=== PATIENT | male | born 1950 | race Caucasian/White ===

== ENCOUNTER → 2017-12-30 14:37 | Outpatient (CLI) | payer MEDICARE, OTHER, SELFPAY ==
--- NOTE | 2017-12-30 | PROSBIL_PTH ---
PATIENT: ISADORA FLORES LOC: [facility] U#:[id number] AGE/SX: 75/M ROOM: RE12/30/[address]: Dr. Dakota Jeffers MD : 1950 BED: DIS: SPEC #: [id number] RECD: 12/31/17 09:14 STATUS: RICARDA HERNÁN #: [id number] JOSE: 12/30/17 00:[address]: Dakota Jeffers DEPT: SURGICAL PATHOLOGY RECD BY: Bassam Kern ENTERED: 12/31/17 09:15 SP TYPE: PROST BX FROYLAN DR: Brittaney Zarco, LYLY-C Tissues: A - PROSTATE RIGHT B - PROSTATE RIGHT C - PROSTATE RIGHT D - PROSTATE LEFT E - PROSTATE LEFT F - PROSTATE LEFT Procedures: PROSTATE BX HEADER OPERATION: Prostate biopsy PRE-OP DIAGNOSIS: Elevated PSA TISSUE SUBMITTED: A - Right apex, B - Right mid, C - Right base, D - Left apex, E - Left mid, F - Left base MICROSCOPIC DIAGNOSIS A. Right prostate, apex, core biopsy: Adenocarcinoma: [place] grade: 6 (3+3) Cores involved: 2 out of 2 cores Tissue involved: 2% Greatest tumor length: <1 mm B. Right prostate, mid, core biopsy: Adenocarcinoma: [place] grade: 6 (3+3) Cores involved: 1 out of 1 core Tissue involved: <1% Greatest tumor length: <1 mm C. Right prostate, base, core biopsy: Focal atrophy and mild chronic inflammation. D. Left prostate, apex, core biopsy: Adenocarcinoma: [place] grade: 6 (3+3) Cores involved: 1 out of 3 cores Tissue involved: <1% Greatest tumor length: <1 mm E. Left prostate, mid, core biopsy: Adenocarcinoma: [place] grade: 6 (3+3) Cores involved: 1 out of 2 cores Tissue involved: 2% Greatest tumor length: 1.2 mm F. Left prostate, base, core biopsy: Adenocarcinoma: [place] grade: 6 (3+3) Cores involved: 1 out of 2 cores Tissue involved: <1% Greatest tumor length: <1 mm AM:daniele 12/31/17 COMMENT A, B, D, E & F - Immunohistochemistry ([id number]) supports the above diagnosis. Case has been reviewed in consultation with Dr. Melgoza who concurs with the above diagnosis. IDC:SJ MICROSCOPIC DESCRIPTION Slides are reviewed. GROSS DESCRIPTION A - Received is one container designated prostate, right apex. The specimen consists of two elongated fragments of light funez-white soft tissue each measuring 1.5 cm in length and 0.1 cm in diameter. The specimen is totally submitted in one cassette. B - Received is one container designated prostate, right mid. The specimen consists of two elongated fragments of light funez-white soft tissue each measuring 1.5 cm in length and 0.1 cm in diameter. The specimen is totally submitted in one cassette. C - Received is one container designated prostate, right base. The specimen consists of two elongated fragments of light funez-white soft tissue each measuring 1.2 cm in length and 0.1 cm in diameter. The specimen is totally submitted in one cassette. D - Received is one container designated prostate, left apex. The specimen consists of three elongated fragments of light funez-white soft tissue each measuring 1.5 cm in length and 0.1 cm in diameter. The specimen is totally submitted in one cassette. E - Received is one container designated prostate, left mid. The specimen consists of two elongated fragments of light funez-white soft tissue measuring 1.5 and 1.8 cm in length and 0.1 cm in diameter. The specimen is totally submitted in one cassette. F - Received is one container designated prostate, left base. The specimen consists of two elongated fragments of light funez-white soft tissue each measuring 1.4 cm in length and 0.1 cm in diameter. The specimen is totally submitted in one cassette. / SJ:rg 12/30/17 TC:0 CPT: G0146
--- NOTE | 2017-12-30 | IMM_PTH ---
PATIENT: ISADORA FLORES LOC: [facility] U#:[id number] AGE/SX: 75/M ROOM: RE12/30/[address]: Dr. Dakota Jeffers MD : 1950 BED: DIS: SPEC #: [id number] RECD: 12/31/17 12:48 STATUS: RICARDA REDahlia #: [id number] JOSE: 12/30/17 00:[address]: Dakota Jeffers DEPT: IMMUNOHISTOCHEMISTRY RECD BY: Clover Rodney ENTERED: 12/31/17 12:50 SP TYPE: IMMUNO OTHR DR: Brittaney Zarco, LOMBARDI DEVELOPER-C Tissues: A - PROSTATE RIGHT B - PROSTATE RIGHT D - PROSTATE LEFT E - PROSTATE LEFT F - PROSTATE LEFT Procedures: 34BE12 (add) P40 (add) 34BE12 (initial) PHYSICIAN & INSTITUTION [place] [id number] SPECIMEN INFORMATION: Tissue Source: A ? Right prostate mid, B ? Right prostate mid, D ? Left prostate apex, E ? Left prostate mid, F ? Left prostate base Clinical Info: Elevated PSA Specimen Number: [id number] A, B, D, E, F CPT code: 45320, 01084 x9 METHODOLOGY: Deparaffinized sections of prefer/formalin-fixed tissue or PAP/DQ stained slides are incubated with monoclonal/polyclonal antibodies/oligonucleotide probes. Localization is made via biotin free immunoperoxidase method. Appropriate controls are performed and reacted as expected. Results on target cell population are indicated in the following table: RESULTS: ANTIBODY / CLONE RESULT Block A 34BE12 (34BE12) negative P40 (BC28) negative Block B 34BE12 (34BE12) negative P40 (BC28) negative Block D 34BE12 (34BE12) negative P40 (BC28) negative Block E 34BE12 (34BE12) negative P40 (BC28) negative Block F 34BE12 (34BE12) negative P40 (BC28) * *?Tissue exhausted. These tests were developed and their performance characteristics determined by [facility]. They may not have been cleared or approved by the U.S. Food and Drug Administration. The FDA has determined that such clearance or approval is not necessary. INTERPRETATION: A. Right prostate, apex, core biopsy: Adenocarcinoma. B. Right prostate, mid, core biopsy: Adenocarcinoma. D. Left prostate, apex, core biopsy: Adenocarcinoma. E. Left prostate, mid, core biopsy: Adenocarcinoma. F. Left prostate, base, core biopsy: Adenocarcinoma. AM:daniele 01/02/18
== END ==
PROVIDERS: Family Provider Nurse Practitioner; PCP Nurse Practitioner; Visit Provider Urology
DX: R97.20 Elevated prostate specific antigen [PSA] (principal)
CPT/HCPCS: 88305; 88341; 88342; G0416

== ENCOUNTER → 2018-07-06 15:36 | Outpatient (CLI) | payer MEDICARE, OTHER, SELFPAY | PROVIDERS: Family Provider Nurse Practitioner; PCP Nurse Practitioner; Visit Provider Urology | DX: C61 Malignant neoplasm of prostate (principal); R97.20 Elevated prostate specific antigen [PSA] | CPT/HCPCS: 36415; 84153 ==

== ENCOUNTER → 2018-08-11 15:27 | Outpatient (CLI) | payer MEDICARE, OTHER, SELFPAY | PROVIDERS: Family Provider Nurse Practitioner; PCP Nurse Practitioner; Visit Provider Urology | DX: C61 Malignant neoplasm of prostate (principal); R97.20 Elevated prostate specific antigen [PSA] | CPT/HCPCS: 36415; 84153 ==

== ENCOUNTER → 2019-02-09 15:11 | Outpatient (CLI) | payer MEDICARE, OTHER, SELFPAY ==
[2018-09-21 20:21] VITALS: BMI 27.6
== END ==
PROVIDERS: Family Provider Nurse Practitioner; PCP Nurse Practitioner; Referring Provider Urology; Visit Provider Urology
DX: C61 Malignant neoplasm of prostate (principal)
CPT/HCPCS: 36415; 84153

== ENCOUNTER → 2019-08-10 14:54 | Outpatient (CLI) | payer MEDICARE, OTHER, SELFPAY ==
[2019-06-17 17:21] VITALS: BMI 26.4
== END ==
PROVIDERS: Family Provider Nurse Practitioner; PCP Nurse Practitioner; Referring Provider Urology; Visit Provider Urology
DX: C61 Malignant neoplasm of prostate (principal)
CPT/HCPCS: 36415; 84153

== ENCOUNTER → 2019-08-31 06:55 | Outpatient (CLI) | payer MEDICARE, OTHER, SELFPAY ==
[2019-06-17 17:21] VITALS: BMI 26.4
--- NOTE | 2019-08-31 | IMM_PTH ---
PATIENT: ISADORA FLORES LOC: [facility] U#:[id number] AGE/SX: 75/M ROOM: RE08/31/[address]: Dr. Dakota Jeffers MD : 1950 BED: DIS: SPEC #: [id number] RECD: 09/02/19 11:56 STATUS: RICARDA REDahlia #: [id number] JOSE: 08/31/19 00:[address]: Dakota Jeffers DEPT: IMMUNOHISTOCHEMISTRY RECD BY: Clovre Rodney ENTERED: 09/02/19 11:57 SP TYPE: IMMUNO OTHR DR: Brittaney Zarco, CONTRACT AGENT-C Tissues: E - PROSTATE LEFT F - PROSTATE LEFT Procedures: 34BE12 (add) P40 (add) 34BE12 (initial) PHYSICIAN & INSTITUTION [place] [id number] SPECIMEN INFORMATION: Tissue Source: E - Left prostate, mid, core biopsy, F - Left prostate, base, core biopsy Clinical Info: Elevated PSA Specimen Number: [id number] E & F CPT code: 65128, 82571 x3 METHODOLOGY: Deparaffinized sections of prefer/formalin-fixed tissue or PAP/DQ stained slides are incubated with monoclonal/polyclonal antibodies/oligonucleotide probes. Localization is made via biotin free immunoperoxidase method. Appropriate controls are performed and reacted as expected. Results on target cell population are indicated in the following table: RESULTS: ANTIBODY / CLONE RESULT Block E 34BE12 (34BE12) negative P40 (BC28) negative Block F 34BE12 (34BE12) positive P40 (BC28) positive These tests were developed and their performance characteristics determined by [facility]. They may not have been cleared or approved by the U.S. Food and Drug Administration. The FDA has determined that such clearance or approval is not necessary. The above immunohistochemical/dualISH markers are ordered and reviewed by the pathologist. INTERPRETATION: E. Left prostate, mid, core biopsy: Adenocarcinoma. F. Left prostate, base, core biopsy: No evidence of carcinoma. AM:daniele 09/03/19
--- NOTE | 2019-08-31 08:00 | PROSBIL_PTH ---
PATIENT: ISADORA FLORES LOC: [facility] U#:[id number] AGE/SX: 75/M ROOM: RE08/31/[address]: Dr. Dakota Jeffers MD : 1950 BED: DIS: SPEC #: [id number] RECD: 08/31/19 17:17 STATUS: RICARDA HERNÁN #: [id number] JOSE: 08/31/19 08:[address]: Dakota Jeffers DEPT: SURGICAL PATHOLOGY RECD BY: Rainer Marcano ENTERED: 09/01/19 09:49 SP TYPE: PROST BX FROYLAN DR: Brittaney Zarco, SYSTEM PLANNING ENGINEER-C Tissues: A - PROSTATE RIGHT B - PROSTATE RIGHT C - PROSTATE RIGHT D - PROSTATE LEFT E - PROSTATE LEFT F - PROSTATE LEFT Procedures: PROSTATE BX HEADER OPERATION: Prostate biopsy PRE-OP DIAGNOSIS: Elevated PSA TISSUE SUBMITTED: A - Right apex, B - Right mid, C - Right base, D - Left apex, E - Left mid, F - Left base MICROSCOPIC DIAGNOSIS A. Right prostate, apex, core biopsy: Focal glandular atrophy and mild chronic inflammation. B. Right prostate, mid, core biopsy: Adenocarcinoma: [place] grade: 7 (3+4) Cores involved: 2 out of 2 Tissue involved: 40% Greatest tumor length: 5 mm C. Right prostate, base, core biopsy: Adenocarcinoma: [place] grade: 7 (3+4) Cores involved: 1 out of 1 Tissue involved: 30% Greatest tumor length: 3 mm D. Left prostate, apex, core biopsy: Adenocarcinoma: [place] grade: 6 (3+3) Cores involved: 1 out of 1 Tissue involved: 2% Greatest tumor length: 1 mm E. Left prostate, mid, core biopsy: Adenocarcinoma: [place] grade: 6 (3+3) Cores involved: 1 out of 2 Tissue involved: <1% Greatest tumor length: 0.5 mm See comment. F. Left prostate, base, core biopsy: Focal high-grade prostatic intraepithelial neoplasia (HGPIN). Mild glandular atrophy and mild chronic inflammation. See comment. AM:daniele 09/02/19 COMMENT E & F. Immunohistochemistry ([id number]) supports the above diagnosis. Case has been reviewed in consultation with Dr. Melgoza who concurs with the above diagnosis. IDC:SJ MICROSCOPIC DESCRIPTION Slides are reviewed. GROSS DESCRIPTION A - Received is one container designated prostate, right apex. The specimen consists of one elongated fragment of light funez-white soft tissue measuring 1 cm in length and 0.1 cm in diameter. The specimen is totally submitted in one cassette. B - Received is one container designated prostate, right mid. The specimen consists of two elongated fragments of light funez-white soft tissue measuring 1 and 2 cm in length and 0.1 cm in diameter. The specimen is totally submitted in one cassette. C - Received is one container designated prostate, right base. The specimen consists of one elongated fragment of light funez-white soft tissue measuring 1 cm in length and 0.1 cm in diameter. The specimen is totally submitted in one cassette. D - Received is one container designated prostate, left apex. The specimen consists of one elongated fragment of light funez-white soft tissue measuring 1.2 cm in length and 0.1 cm in diameter. The specimen is totally submitted in one cassette. E - Received is one container designated prostate, left mid. The specimen consists of two elongated fragments of light funez-white soft tissue each measuring 1.5 cm in length and 0.1 cm in diameter. The specimen is totally submitted in one cassette. F - Received is one container designated prostate, left base. The specimen consists of two elongated fragments of light funez-white soft tissue each measuring 1 cm in length and 0.1 cm in diameter. The specimen is totally submitted in one cassette. / MARC:daniele 09/01/19 TC:0 CPT: G0146
== END ==
PROVIDERS: Family Provider Nurse Practitioner; PCP Nurse Practitioner; Referring Provider Urology; Visit Provider Urology
DX: R97.20 Elevated prostate specific antigen [PSA] (principal)
CPT/HCPCS: 88305; 88341; 88342; G0416

== ENCOUNTER → 2019-09-27 17:05 | Outpatient (CLI) | payer MEDICARE, OTHER, SELFPAY ==
[2019-06-17 17:21] VITALS: BMI 26.4
[2019-09-21 17:18] VITALS: BMI 27.4
--- NOTE | 2019-09-27 17:06 | CT_ITS ---
STUDY: CT ABDOMEN AND PELVIS WITH AND WITHOUT CONTRAST REASON FOR EXAM: Male, 69 years old. History of prostate cancer, presenting with elevated PSA levels. RADIATION DOSAGE (If Supplied By Facility): CTDIvol = ( 16.11 ) mGy, DLP = ( 1772.24 ) mGycm TECHNIQUE: Transaxial images were obtained from the dome of the diaphragm to the symphysis pubis without oral contrast. IV Isovue 300 100 was administered. Sagittal and coronal images were reconstructed. Individualized dose optimization techniques were used for this CT. COMPARISON: None. FINDINGS: Lung bases demonstrate mild dependent atelectasis versus scar formation. The visualized portions of the heart are within normal limits. Hypoattenuated lesion in the right posterior hepatic segment. Calcified stone in a mildly distended but nonthickened gallbladder. Normal spleen. Normal pancreas. Right adrenal gland is normal. 1.3 cm nodule involving the body of the left adrenal gland. Hypoattenuated lesions within both kidneys. Calcific densities within bilateral renal collecting systems measuring up to 3 mm on the right and 4 mm on the left. No hydronephrosis or hydroureter. Calcified stones are noted within the dependent portion urinary bladder. Normal visualized stomach. Normal small intestine. Mild to moderate diverticular disease of the sigmoid colon without localized inflammation. The appendix is visualized and appears normal. Normal abdominal aorta. Normal inferior vena cava. Normal retroperitoneum. Normal urinary bladder. Mild to moderate prostatomegaly with internal calcification. No pelvic lymphadenopathy. Normal abdominal wall. No acute skeletal abnormality. Moderate multilevel degenerative disc and facet disease visualized lumbar spine. CT/CT Abd/Pelvis W/WO Contrast IMPRESSION: 1. Nonobstructing bilateral renal calculi measuring up to 3 mm on the right neck to 4 mm on the left, with calcifications also noted within the urinary bladder lumen. 2. Simple appearing bilateral renal cysts. 3. Sigmoid colonic diverticulosis with no evidence of acute diverticulitis. 4. Mild to moderate prostatomegaly 5. Cyst versus hemangioma within the right posterior hepatic segment. 6. Cholelithiasis with no evidence of acute cholecystitis. Electronically Signed: Bassam Johnson MD at 4:53 EDT Tel , Service support ,
[2019-09-27 17:21] LABS: CREATININE FINGERSTICK 0.7 mg/dL (0.70-1.30)
== END ==
PROVIDERS: Family Provider Nurse Practitioner; PCP Nurse Practitioner; Referring Provider Urology; Visit Provider Urology
DX: C61 Malignant neoplasm of prostate (principal); N20.0 Calculus of kidney; K57.30 Diverticulosis of large intestine without perforation or abscess without bleeding; K80.20 Calculus of gallbladder without cholecystitis without obstruction; N28.1 Cyst of kidney, acquired; N40.0 Benign prostatic hyperplasia without lower urinary tract symptoms
CPT/HCPCS: 74178; Q9967

== ENCOUNTER → 2019-10-01 09:21 | Outpatient (CLI) | payer MEDICARE, OTHER, SELFPAY ==
[2019-06-17 17:21] VITALS: BMI 26.4
[2019-09-21 17:18] VITALS: BMI 27.4
--- NOTE | 2019-10-01 09:24 | NM_ITS ---
CLINICAL: 69-year-old male with reported history of carcinoma of the prostate. WHOLE BODY 99m Tc MDP RADIONUCLIDE BONE SCINTIGRAPHY COMPARISON: Previous whole body bone scintigraphy study dated 10/18/2016, CT of the abdomen-pelvis report 09/27/2019 FINDINGS: Following the intravenous administration of 25.4 mCi of 99m Tc MDP, whole body bone images reveal: 1. Increased radiopharmaceutical concentration is currently defined in the left wrist, bilateral hands, acromioclavicular and sternoclavicular compartments of both shoulders, mid cervical spine posteriorly on the right, 10th-11th thoracic vertebra posteriorly on the right, second-fifth lumbar vertebra, bilateral knees. 2. The remaining skeletal structures are scintigraphically unremarkable with normal-appearing renal images and urinary bladder activity identified. There is interval resolution of the previously identified left posterolateral 11th rib abnormality. NM/Bone Scan Whole Body IMPRESSION: 1. The increase in radiopharmaceutical concentration identified in the left wrist, bilateral hands, shoulders bilaterally, cervical, thoracic and lumbar spine, both knees is commensurate with degenerative arthritis. 2. Overall compared to the previous whole body bone scintigraphy study dated 10/18/2016, there is no significant interval change. No current typical scintigraphic evidence of diffuse axial skeletal metastatic disease is demonstrated on the current examination. Electronically Signed: Efren Hogan DO at 23:25 EDT Tel , Service support ,
== END ==
PROVIDERS: Family Provider Nurse Practitioner; PCP Nurse Practitioner; Referring Provider Urology; Visit Provider Urology
DX: C61 Malignant neoplasm of prostate (principal)
CPT/HCPCS: 78306

== ENCOUNTER → 2020-03-28 14:48 | Outpatient (CLI) | payer MEDICARE, OTHER, SELFPAY ==
[2019-09-21 17:18] VITALS: BMI 27.4
== END ==
PROVIDERS: PCP Nurse Practitioner; Referring Provider Urology; Visit Provider Urology
DX: C61 Malignant neoplasm of prostate (principal)
CPT/HCPCS: 36415; 84153

== ENCOUNTER → 2020-10-03 13:50 | Outpatient (CLI) | payer MEDICARE, OTHER, SELFPAY ==
[2020-09-13 17:00] VITALS: BMI 27.2
== END ==
PROVIDERS: PCP Nurse Practitioner; Referring Provider Urology; Visit Provider Urology
DX: C61 Malignant neoplasm of prostate (principal)
CPT/HCPCS: 36415; 84153

== ENCOUNTER → 2021-08-14 14:47 | Outpatient (CLI) | payer MEDICARE, OTHER, SELFPAY ==
[2021-03-20 18:06] VITALS: BMI 27.1
== END ==
PROVIDERS: PCP Nurse Practitioner; Visit Provider Urology
DX: C61 Malignant neoplasm of prostate (principal)
CPT/HCPCS: 36415; 84153

== ENCOUNTER → 2021-08-30 07:45 | Outpatient (CLI) | payer MEDICARE, OTHER, SELFPAY ==
--- NOTE | 2021-08-30 07:56 | NM_ITS ---
CLINICAL: 71-year-old male with reported history of carcinoma of the prostate. WHOLE BODY 99m Tc MDP RADIONUCLIDE BONE SCINTIGRAPHY COMPARISON: Whole body bone scintigraphy study dated 10/01/2019 FINDINGS: Following the intravenous administration of 25.5 mCi of 99m Tc MDP, whole body bone images reveal: 1. Increased radiopharmaceutical concentration is demonstrated in the mid cervical spine posteriorly on the left and right, second-third lumbar vertebra posteriorly on the left, fifth lumbar vertebra posteriorly on the right, the acromioclavicular and sternoclavicular compartments of both shoulders, right wrist, bilateral hands, the left knee. 2. The remaining skeletal structures are scintigraphically unremarkable with normal-appearing renal images and urinary bladder activity identified. NM/Bone Scan Whole Body IMPRESSION: 1. The increase in radiopharmaceutical concentration defined in the cervical and lumbar spine, bilateral shoulders, right wrist, left knee, both hands is most consistent with degenerative arthritis. 2. Overall compared to the previous whole body bone scintigraphy study dated 10/01/2019, there is no significant interval change, with no current scintigraphic evidence of diffuse axial skeletal metastatic disease on the present examination. Electronically Signed: Efren Hogan DO at 23:04 EDT Tel , Service support ,
== END ==
PROVIDERS: PCP Nurse Practitioner; Referring Provider Urology; Visit Provider Urology
DX: C61 Malignant neoplasm of prostate (principal)
CPT/HCPCS: 78306; A9503

== ENCOUNTER → 2021-08-31 12:31 | Outpatient (CLI) | payer MEDICARE, OTHER, SELFPAY ==
--- NOTE | 2021-08-31 12:33 | CT_ITS ---
STUDY: CT ABDOMEN AND PELVIS WITH CONTRAST REASON FOR EXAM: Male, 71 years old. PROSTATE CA RADIATION DOSAGE (If Supplied By Facility): CTDIvol = ( 15.175 ) mGy, DLP = ( 670.46 ) mGycm TECHNIQUE: Transaxial images were obtained from the dome of the diaphragm to the symphysis pubis with oral contrast. Oral and amp; IV and amp; 100mL Isovue-370 was administered. Sagittal and coronal images were reconstructed. Individualized dose optimization techniques were used for this CT. COMPARISON: Comparison is made with prior study date 09/19/2019. FINDINGS: Minimal increased markings at the lung base suggestive of either linear atelectasis or mild scarring. The visualized portions of the heart are within normal limits. 1 cm cyst in the dome of the right lobe of the liver. Stable 1 cm cyst in the posterior medial aspect of the right lobe of the liver. Normal gallbladder and extrahepatic biliary system. There is mild splenomegaly. Normal pancreas. Normal bilateral adrenal glands. There is a 5.6 mm calculus in the anterior midpole calyx of the right kidney. Small nonobstructive right intrarenal calculi. 2.2 cm x 2.6 cm cyst in the lower pole of the right kidney. Left parapelvic cysts. Tiny nonobstructive left intrarenal calculi. Normal visualized stomach. Normal small intestine. There are scattered colonic diverticula consistent with diverticulosis. The appendix is visualized and appears normal. Normal abdominal aorta. Normal inferior vena cava. Normal retroperitoneum. Multiple calculi are seen at the base of the bladder on the left side. The prostate measures 4.4 cm x 4.1 cm. Central calcifications are seen. There is a left-sided inguinal hernia containing adipose tissue. Small benign bilateral inguinal lymph nodes. There are diffuse degenerative changes of the visualized lumbar spine. Findings suggestive of spinal stenosis at the L4-L5 and L5-S1 levels. CT/Abdomen/Pelvis WITH Contrast IMPRESSION: 2 cysts are seen in the right lobe of the liver. Bilateral nonobstructive intrarenal calculi. Multiple calculi are seen at the base of the bladder on the left side. 2.2 cm x 2.6 cm cyst in the lower pole of the right kidney. Electronically Signed: Ronald Chaney MD at 14:30 EDT , Service support ,
[2021-08-31 13:00] LABS: CREATININE FINGERSTICK 0.9 mg/dL (0.70-1.30); EGFR FINGERSTICK > 60.0000 mL/min (>60)
== END ==
PROVIDERS: PCP Nurse Practitioner; Referring Provider Urology; Visit Provider Urology
DX: C61 Malignant neoplasm of prostate (principal)
CPT/HCPCS: 74177; Q9967

== ENCOUNTER → 2021-09-26 14:02 | Outpatient (CLI) | payer MEDICARE, OTHER, SELFPAY ==
[2021-09-26 14:57] LABS: Hematocrit 41.5 % (40-54); Hemoglobin 14.4 g/dL (13.0-16.5); Mean Corp Hgb Conc 34.7 g/dL (32-36); Mean Corpuscular Hgb 33.3 pg (27.0-32.0); Mean Corpuscular Volume 96.1 fL (80-94); Mean Platelet Vol. 9.7 fl (6.2-12.0); Platelet Count 173 K/mm3 (150-450); RBC Distribution Width CV 12.9 % (11.6-14.6); RBC Distribution Width SD 45.7 fl (35.1-43.9); Red Blood Count 4.32 M/mm3 (4.6-6.2); White Blood Count 4.3 K/mm3 (4.4-11.0)
[2021-09-26 15:33] LABS: Anion Gap 2 (5-15); BUN 13 mg/dL (7-18); Chloride 106 mmol/L (98-107); Creatinine, Serum 1.08 mg/dL (0.70-1.30); EST Glomerular Filtration Rate 71 mL/min (>60); Est Glom Filt Rate - Afr Amer 86 mL/min (>60); Glucose 78 mg/dL (74-106); Potassium 4.4 mmol/L (3.5-5.1); Sodium Level 141 mmol/L (136-145)
== END ==
PROVIDERS: PCP Nurse Practitioner; Referring Provider Urology; Visit Provider Urology
DX: Z01.812 Encounter for preprocedural laboratory examination (principal); Z79.899 Other long term (current) drug therapy
CPT/HCPCS: 36415; 80048; 85027

== ENCOUNTER 2022-03-18 15:31 | Outpatient (CLI) | payer MEDICARE, OTHER, SELFPAY | END 2022-03-18 23:59 | disposition home or self-care (01) | PROVIDERS: PCP Nurse Practitioner; Visit Provider Urology | DX: C61 Malignant neoplasm of prostate (principal) | CPT/HCPCS: 36415; 84153 ==